=== PATIENT | male | born 1975 | race Caucasian/White ===

== ENCOUNTER 2018-12-04 07:36 | Emergency (ER) | payer OTHER ==
[~2018-12-04] VITALS: Ht 185.4 cm; Wt 81.6 kg
--- NOTE | ~2018-12-04 | EKG ---
[place], [place] ELECTROCARDIOGRAM REPORT NAME: YAHAIRA RILEY UNIT #: [id number] ROOM: DOCTOR: MONICA DRAFT REPORT BIRTHDATE: [birth year] [facility] Test Date: 2018-12-04 Test Time: 07:36:37 Pat Name: YAHAIRA RILEY Department: Room: Gender: Equipment Hire Manager: Ev Seals : 1975 Requested By: BRANDON IRENE Order Number: [id number] Reading MD: Parker Gaffney MD Measurements Intervals [place] Rate: 79 P: 56 RI: 160 QRS: 59 QRSD: 89 T: 56 QT: 367 QTc: 421 Interpretive Statements Sinus rhythm RSR' in V1 or V2, probably normal variant No previous ECG available for comparison Electronically Signed On 12-04-2018 17:16:36 PST by Parker Gaffney MD CM:EKGRPT:ELECTROCARDIOGRAM REPORT [id number] BRANDON SANTIAGO DRAFT REPORT BRANDON IRENE DO
[~2018-12-04 07:36] MED LIST: 'PARAFON FORTE500 M1 PO; AMOXICILLIN500 M2 PO; ANTIBIOTICS; CLEOCIN150 MG PO; CLINDAMYCIN HC300 MG PO; CYCLOBENZAPRINE10 MG PO; LOMOTIL 0.025 M1 TA1 PO; Motrin,Rufen800 MG PO; NAPROSYN500 MG PO; NAPROXEN D/R500 MG PO; PENICILLIN VK500 MG PO; Peridex 473 ML473 ML PO; TRAMADOL HCL50 MG PO; ULTRAM50 MG PO; ZOFRAN ODT4 MG SL
[2018-12-04 07:56] LABS: BASO % 0.5 % (0.0-1.0); EOS # 0.1 10*3/uL (0.0-0.4); EOS % 1.1 % (1.0-4.0); HEMATOCRIT 43.3 % (42.0-52.0); HEMOGLOBIN 14.6 g/dl (14.0-18.0); LYMPH # 1.9 10*3/uL (1.3-4.4); MEAN CELL VOLUME 86.1 fl (80.0-94.0); MEAN CORPUSCULAR HGB CONC 33.7 g/dl (33.0-37.0); MEAN PLATELET VOLUME 9.8 fl (9.6-12.3); MONO # 0.6 10*3/uL (0.1-1.0); MONO % 8.7 % (3.0-9.0); NEUT % 60.5 % (47.0-73.0); PLATELET COUNT AUTOMATED 264 10*3/uL (130-400); RED BLOOD COUNT 5.03 10*6/uL (4.50-5.90); RED CELL DISTRI WIDTH 12.7 % (0-14.5); WHITE BLOOD COUNT 6.6 10*3/uL (4.8-10.8)
[2018-12-04 08:12] LABS: ALBUMIN 3.6 gm/dl (3.1-4.5); ALKALINE PHOSPHATASE 106 U/L (45-117); BUN 8 mg/dl (7-24); CHLORIDE 104 mmol/L (98-107); CREATININE 1.15 mg/dL (0.70-1.30); POTASSIUM 3.4 mmol/L (3.5-5.1); SGOT/AST 17 IU/L (3-35); SGPT/ALT 22 U/L (12-78); SODIUM 139 mmol/L (136-145)
[2018-12-04 08:13] LABS: TROPONIN I < 0.015 ng/ml (<0.045)
[2018-12-04] MEDS ORDERED: Motrin,Rufen800 MG PO (08:42)
== END 2018-12-04 09:02 | disposition home or self-care (01) ==
LOC: ED 07:36
PROVIDERS: Emergency Medicine
DX: R09.1 Pleurisy (principal); F17.200 Nicotine dependence, unspecified, uncomplicated

== ENCOUNTER 2019-01-29 11:10 | Emergency (ER) | payer SELFPAY ==
[~2019-01-29] VITALS: Ht 185.4 cm; Wt 81.6 kg
[~2019-01-29 11:10] MED LIST changes: -MEDROL DOSEPAK4 MG PO; -PREDNISONE50 MG PO
[2019-01-29] MEDS ORDERED: MEDROL DOSEPAK4 MG PO (11:54)
[2019-05-13] MEDS ORDERED: PREDNISONE50 MG PO (16:37)
[2019-05-13] MEDS ORDERED: CYCLOBENZAPRINE10 MG PO (16:37)
== END 2019-01-29 11:59 | disposition home or self-care (01) ==
LOC: ED 11:10
DX: G89.29 Other chronic pain (principal); M54.5 Low back pain

== ENCOUNTER → 2019-01-29 | Outpatient (CLI) | payer SELFPAY ==
[~2019-01-29] MED LIST changes: +MEDROL DOSEPAK4 MG PO; +PREDNISONE50 MG PO
== END | disposition home or self-care (01) ==
LOC: RESCLI 13:06
DX: M54.42 Lumbago with sciatica, left side (principal); G89.29 Other chronic pain; F17.210 Nicotine dependence, cigarettes, uncomplicated; Z71.6 Tobacco abuse counseling

== ENCOUNTER → 2019-02-05 | Outpatient (CLI) | payer SELFPAY ==
[~2019-02-05] MED LIST changes: +MEDROL DOSEPAK4 MG PO; +PREDNISONE50 MG PO
== END | disposition home or self-care (01) ==
LOC: RESCLI 02:01
DX: Z00.00 Encounter for general adult medical examination without abnormal findings (principal); M54.42 Lumbago with sciatica, left side; F17.200 Nicotine dependence, unspecified, uncomplicated; Z88.8 Allergy status to other drugs, medicaments and biological substances